=== PATIENT | female | born 1965 | race Caucasian/White ===

== ENCOUNTER 2018-03-15 04:55 | Day surgery (SDC) | payer OTHER ==
[2018-03-11 17:03] VITALS: BMI 40.6
--- NOTE | 2018-03-15 08:53 | HP ---
History & Physical Update - History History: No Change - Physical Physical: No Change - Assessment Assessment: No Change - Plan Plan: No Change
--- NOTE | 2018-03-15 08:54 | OP ---
Operative Note - Note: Operative Date: 03/15/18 Pre-Operative Diagnosis: stress urinary incontinence Operation: suburethral sling Findings: EVON Implants: sling Post-Operative Diagnosis: Same as Pre-op Surgeon: James Ulloa Estimated Blood Loss (mls): 200 Drains & Tubes with Location: 16 fr kinney Operative Report Dictated: Yes
[2018-03-15] MEDS ORDERED: MIDAZOLAM HCL 2 MG/2 ML SINGLE DOSE VIAL ONE (13:14)
[2018-03-15] MEDS ORDERED: LIDOCAINE 1%/EPI 1:100000 (20 ML MULTI DOSE VIAL) ONE (13:23)
[2018-03-15] MEDS ORDERED: BACITRACIN 15 GM TUBE TOPICAL OINTMENT ONE (13:24)
[2018-03-15] MEDS ORDERED: DEXAMETHASONE SOD PHOSPHATE 4 MG/1 ML VIAL ONE (13:32)
[2018-03-15] MEDS ORDERED: ceFAZolin SODIUM 1 GM VIAL ONE (13:34)
[2018-03-15] MEDS ORDERED: PROPOFOL 20 ML ONE (13:34)
[2018-03-15] MEDS ORDERED: LIDOCAINE HCL/PF 2% SDV 5ML VIAL ONE (13:34)
[2018-03-15] MEDS ORDERED: ceFAZolin SODIUM 1 GM VIAL IVPB ONE (13:35)
[2018-03-15] MEDS ORDERED: LIDOCAINE 1%/EPI 1:100000 (20 ML MULTI DOSE VIAL) INF ONE (13:47)
[2018-03-15] MEDS ORDERED: BACITRACIN 50,000 UNITS VIAL TP ONE (14:01)
[2018-03-15] MEDS ORDERED: BACITRACIN 15 GM TUBE TOPICAL OINTMENT TP ONE (14:04)
[2018-03-15] MEDS ORDERED: oxyCODONE HCL 5 MG TABLET PO PRN (14:32)
[2018-03-15] MEDS ORDERED: ONDANSETRON 4 MG/2 ML VIAL IVPUSH PRN (14:32)
[2018-03-15] MEDS ORDERED: LACTATED RINGERS SOLUTION 1,000 ML IV SCH (14:45)
[2018-03-15 17:25] VITALS: TEMP 98
[2018-03-15 17:47] VITALS: BP 129/68; PULSE 83
--- NOTE | 2018-03-15 20:25 | OP ---
DATE OF OPERATION: 03/15/2018 PREOPERATIVE DIAGNOSIS: Stress urinary incontinence. POSTOPERATIVE DIAGNOSIS: Stress urinary incontinence. PROCEDURE: Suburethral sling. SURGEON: James Barker M.D. MUSIC PASTOR: None. ANESTHESIA: General via laryngeal mask. ANESTHESIOLOGIST: Billy Carrasco M.D. SPECIMENS: None. CULTURES: None. DRAINS: 16 [place] catheter. ESTIMATED BLOOD LOSS: Approximately 200 mL. COMPLICATIONS: None. DESCRIPTION OF PROCEDURE: Patient was brought in the operating room, placed on the operating table in the supine position. After administration of intravenous antibiotics, sequential compression devices were placed. The vagina, perineum, thighs, lower abdomen, and buttocks were prepped and draped in the usual sterile manner. A 16 [place] catheter was placed per urethra into the bladder, 10 mL was placed in gravity drainage, returned clear. Weighted speculum was placed within the vagina. The anterior vaginal wall overlying the mid urethra was now infiltrated with lidocaine with epinephrine 1:100,000 diluted with normal saline half and half. The blanching of the mucosa was achieved. Now an anterior vaginal wall midline incision overlying the mid urethra was made for approximately a distance of 2 cm. Now using sharp and blunt dissection, flaps were raised on each side to the level of the pubocervical fascia up to the level of the inferior ramus of the pubic bone on each side. Endopelvic fascia was not broken through. Now the [place] sling was mounted on the helical needle and was passed through the obturator foramen on the left side. Now the sling was passed with another helical needle to the obturator foramen on the right side. Using a tensioning suture, the suture was tensioned allowing the sling to lay flat against the urethra, excepting a right angle clamp beneath between the sling and urethra. The tensioning suture was cut, and the excision was closed with a running 3-0 Vicryl suture. Hemostasis was assured. The wound was irrigated with antibiotic solution prior to closing. The vagina was then packed with bacitracin and Betadine soaked Kerlix. Rico catheter at the end of the procedure drained clear urine. She tolerated the procedure well transferred to recovery in stable condition. JAMES BARKER M.D. [id number]
== END 2018-03-15 18:00 | disposition home or self-care (01) ==
LOC: JASU-SURG 04:55
PROVIDERS: ATTEND Urology
PROC: 0TSD0ZZ Reposition Urethra, Open Approach (ICD-10-PCS; principal; 2018-03-15 13:00)
DX: N39.3 Stress incontinence (female) (male) (principal); E11.9 Type 2 diabetes mellitus without complications
CPT/HCPCS: 82962; 84703; 94760